=== PATIENT | male | born 1960 | race Caucasian/White ===

== ENCOUNTER 2020-01-31 11:34 | Outpatient (CLI) | payer OTHER | END 2020-01-31 11:41 | disposition home or self-care (01) | LOC: RAD 11:34 | PROVIDERS: ATTEND Physical Medicine & Rehabilitation | DX: M40.294 Other kyphosis, thoracic region (principal); M54.6 Pain in thoracic spine ==

== ENCOUNTER 2023-01-25 08:38 | Outpatient (CLI) | payer OTHER | END 2023-01-25 08:39 | disposition home or self-care (01) | LOC: NUCLEAR 08:38 | DX: I73.9 Peripheral vascular disease, unspecified (principal) ==

== ENCOUNTER 2023-01-26 08:56 | Emergency (ER) | payer OTHER ==
[~2023-01-26] VITALS: Ht 162.6 cm; Wt 91.2 kg
[2023-01-26 14:52] LABS: HEMATOCRIT 39.5 % (39.0-48.0); HEMOGLOBIN 13.5 g/dL (13-16.00); MEAN CELL VOLUME 92.3 fL (80.0-100.00); MEAN CORPUSCULAR HEMOGLOBIN 31.6 pg (27.00-32.0); MEAN CORPUSCULAR HGB CONC 34.2 g/dl (32.0-36.0); PLATELET COUNT 270 K/uL (150-450); RED BLOOD COUNT 4.28 M/uL (4.00-6.00)
[2023-01-26 15:59] LABS: INR 0.97; PARTIAL THROMBOPLASTIN TIME 28.6 SECONDS (22.0-34.0); PROTHROMBIN TIME 10.2 SECONDS (9.0-11.5)
[2023-01-26 16:08] LABS: ALBUMIN 3.7 gm/dL (3.4-5.0); BILIRUBIN TOTAL 1.16 mg/dL (0.3-1.2); CALCIUM 9.5 mg/dL (8.5-10.1); CREATININE SERUM 0.84 mg/dL (0.70-1.30); GFR 93.21; POTASSIUM 4.31 mEq/L (3.5-5.1); TOTAL PROTEIN 7.7 gm/dL (6.4-8.2)
[2023-01-26 18:59] LABS: ABG PH 7.396 (7.35-7.45); ABG PO2 76.8 mmHg (80-100); ABG pCO2 48.2 mmHg (35-45)
[2023-01-26 19:00] LABS: BASE EXCESS 3.2 mmol/l; BICARBONATE 28.9 mmol/l (23-25); Tco2 30.4 mmol/l; allen test SATISFACTORY; o2 21 %; puncture site RADIAL LEFT
[2023-01-26 19:01] LABS: SaO2 95.3 %
== END 2023-01-26 20:04 | disposition home or self-care (01) ==
LOC: ER 08:56
PROVIDERS: Emergency Medicine; General Practice
DX: S22.42XA Multiple fractures of ribs, left side, initial encounter for closed fracture (principal); S27.898A Other injury of other specified intrathoracic organs, initial encounter; W19.XXXA Unspecified fall, initial encounter; Y93.89 Activity, other specified; Y92.098 Other place in other non-institutional residence as the place of occurrence of the external cause; Y99.8 Other external cause status; M25.511 Pain in right shoulder

== ENCOUNTER 2024-08-29 08:26 | Outpatient (CLI) | payer OTHER | END 2024-08-29 08:30 | disposition home or self-care (01) | LOC: SONOGRAMA 08:26 | PROVIDERS: ATTEND General Practice | DX: R31.9 Hematuria, unspecified (principal) ==